=== PATIENT | female | born 1990 | race Asian ===

== ENCOUNTER 2025-06-27 08:52 | Emergency (ER) | payer OTHER ==
[~2025-06-27] VITALS: Ht 152.4 cm; Wt 77.3 kg
[2025-06-27 08:58] VITALS: TEMP 97.5
[2025-06-27 09:30] LABS: PLATELET COUNT (AUTO) 357 K/uL (150-450); RED BLOOD CELL COUNT(AUTO) 5.01 MIL/uL (4.00-5.20); RED CELL DISTRIBUTION WIDTH 12.4 % (11.5-14.5); WHITE BLOOD COUNT (AUTO) 15.2 K/uL (4.5-11.0)
[2025-06-27 09:34] LABS: CALCIUM, TOTAL 9.4 mg/dL (8.8-10.5); CREATININE 0.72 mg/dL (0.60-1.30); GLOMERULAR FILTR. RATE CALC > 60 mL/min (>60); GLUCOSE,RANDOM 183 mg/dL (70-110); SODIUM SERUM 140 mmol/L (136-145); UREA NITROGEN, BLOOD 6 mg/dL (7-18)
[2025-06-27 09:44] LABS: ASPARTATE AMINOTRANSFERASE 22.0 U/L (15-37); TOTAL PROTEIN, SERUM 8.1 g/dL (6.4-8.2)
[2025-06-27] MEDS: ONDANSETRON 4 MG TABLET PO ONE (10:02)
[2025-06-27] MEDS: ACETAMINOPHEN 500 MG TABLET PO ONE (10:03)
[2025-06-27] MEDS: PB/HYOSCY/ATR/SCOP/LIDO/MAALOX 55 ML BOTTLE PO ONE (10:03)
[2025-06-27] MEDS: OMEPRAZOLE 20 MG CAPSULE PO ONE (12:57)
[2025-06-27] MEDS ORDERED: OMEP-148 PO (13:37)
[2025-06-27 13:55] VITALS: BP 130/78; PULSE 95; RESP 1; O2SAT 97
== END 2025-06-27 14:18 | disposition home or self-care (01) ==
LOC: EMS 08:54
DX: R10.13 Epigastric pain (principal); K59.00 Constipation, unspecified; J45.909 Unspecified asthma, uncomplicated
CPT/HCPCS: 99284; 76705; 80048; 80076; 83690; 84703; 85025; 36415; 93005; Q0162